=== PATIENT | male | born 1990 | race American Indian/Alaskan Native ===

== ENCOUNTER 2018-05-10 16:48 | Emergency (ER) | payer SELFPAY ==
[2018-05-10 16:53] VITALS: BP 117/79
--- NOTE | 2018-05-10 18:03 | Emergency Department Report ---
HPI - General Chief Complaint: Skin Rash Time Seen by Provider: 05/10/18 17:53 - HPI HPI: 28-year-old Brazilian male presents to the emergency department with a complaint of a one-week history of a rash to the right antecubital area, inside the right elbow. It started off smaller but has grown to be a larger circular area made up of small scaly itchy bumps. He has been scratching them. He tried some Neosporin. He denies any previous history of this. He denies any past medical history. He denies any fever. He does not have a primary care physician. No recent travel. ED Past Medical Hx - Past Medical History Previous Medical History?: No - Surgical History Past Surgical History?: No - Social History Smoking Status: Current Every Day Smoker Substance Use Type: None - Medications Home Medications: Home Medications Medication Instructions Recorded Confirmed Last Taken Type HYDROcodone/APAP 5-325 [[place] 1 each PO Q6HR PRN #14 tablet 05/10/14 Unknown Rx 5/325] Penicillin Vk [Veetids TAB] 500 mg PO QID #40 tablet 05/10/14 Unknown Rx Hydrocortisone 1% [Hydrocortisone 1 applicatio TP TID #1 tube 05/10/18 Unknown Rx 1% CREAM] Prednisone [predniSONE 5 mg (6-Day 5 mg PO .TAPER #1 tab.ds.pk 05/10/18 Unknown Rx Pack, 21 Tabs)] ED Review of Systems ROS: Stated complaint: RASH Other details as noted in HPI Comment: All other systems reviewed and negative Constitutional: denies: chills, fever Eyes: denies: eye pain, eye discharge, vision change ENT: denies: ear pain, throat pain Respiratory: denies: cough, shortness of breath, wheezing Gastrointestinal: denies: abdominal pain, nausea, diarrhea Genitourinary: denies: urgency, dysuria Musculoskeletal: denies: back pain, joint swelling, arthralgia Skin: rash, pruritus Neurological: denies: headache, weakness, paresthesias Physical Exam - Physical Exam Vital Signs: Vital Signs 05/10/18 16:51 Temperature 98.6 F Pulse Rate 103 H Respiratory 18 Rate Blood Pressure 117/79 O2 Sat by Pulse 98 Oximetry Physical Exam: GENERAL: The patient is well-developed well-nourished. HENT: Normocephalic. Atraumatic. Patient has moist mucous membranes. EYES: Extraocular motions are intact. NECK: Supple. Trachea is midline. CHEST/LUNGS: Clear to auscultation. There is no respiratory distress noted. HEART/CARDIOVASCULAR: Regular. There is no tachycardia. There is no murmur. ABDOMEN: There is no abdominal distention. SKIN: Skin is warm and dry. The patient has a circular area of dry scaly slightly raised skin to the right antecubital fossa that appears consistent with atopic dermatitis. NEURO: The patient is awake, alert, and oriented. The patient is cooperative. The patient has no focal neurologic deficits. The patient has normal speech. MUSCULOSKELETAL: There is no tenderness or deformity. There is no limitation range of motion. There is no evidence of acute injury. ED Course Vital Signs 05/10/18 16:51 Temperature 98.6 F Pulse Rate 103 H Respiratory 18 Rate Blood Pressure 117/79 O2 Sat by Pulse 98 Oximetry ED Medical Decision Making - Medical Decision Making The patient appears to have an area of eczema to the right antecubital fossa. There are some excoriations but no current signs of cellulitis or secondary bacterial infection. We discussed using soap and water and keeping the area dry and avoiding any further scratching. He has been given a 1% hydrocortisone cream and a low to mid dose Medrol Dosepak. The patient was given referrals for primary care and dermatology. Vital signs stable including being afebrile. - Differential Diagnosis eczema, psoriasis, allergic reaction Critical Care Time: No Critical care attestation.: If time is entered above; I have spent that time in minutes in the direct care of this critically ill patient, excluding procedure time. ED Disposition Clinical Impression: Atopic dermatitis Qualifiers: Atopic dermatitis type: flexural Qualified Code(s): L20.89 - Other atopic dermatitis Disposition: DC-01 TO HOME OR SELFCARE Is pt being admited?: No Condition: Stable Instructions: Eczema (ED) Additional Instructions: Please follow up with a primary care physician. I have also given you a referral for a local neon sign worker. Please make sure you do not scratch and/or excoriate the area and cause any secondary bacterial infections. Return to the emergency Department with any worsening of your symptoms, development of fever, or with any acute distress. Prescriptions: Hydrocortisone 1% [Hydrocortisone 1% CREAM] 1 applicatio TP TID #1 tube Prednisone [predniSONE 5 mg (6-Day Pack, 21 Tabs)] 5 mg PO .TAPER #1 tab.ds.pk Referrals: PRIMARY CARE, [Primary Care Provider] - 3-5 Days ALEXANDRU HEART MD [Staff Physician] - 3-5 Days THERESA HAN MD [Staff Physician] - 3-5 Days [facility] [Outside] - 3-5 Days Forms: Work/School Release Form(ED) Time of Disposition: 18:03
== END 2018-05-10 18:09 | disposition home or self-care (01) ==
LOC: ED 16:48
DX: L20.89 Other atopic dermatitis (principal); F17.200 Nicotine dependence, unspecified, uncomplicated
CPT/HCPCS: 99282